=== PATIENT | male | born 1945 ===

== ENCOUNTER 2022-01-01 04:29 | Day surgery (SDC) | payer OTHER, BC ==
[2021-12-29 16:34] VITALS: BMI 26.5
[2022-01-01 08:20] VITALS: TEMP 97.5
[2022-01-01 09:15] VITALS: BP 115/67; PULSE 54
== END 2022-01-01 08:55 | disposition home or self-care (01) ==
LOC: JASU-ENDO 04:29
PROVIDERS: ATTEND Internal Medicine Gastroenterology
PROC: 0DJD8ZZ Inspection of Lower Intestinal Tract, Via Natural or Artificial Opening Endoscopic (ICD-10-PCS; principal; 2022-01-01 08:00)
DX: Z12.11 Encounter for screening for malignant neoplasm of colon (principal); K57.30 Diverticulosis of large intestine without perforation or abscess without bleeding; K64.8 Other hemorrhoids; Z86.010 Personal history of colon polyps; Z80.0 Family history of malignant neoplasm of digestive organs